=== PATIENT | female | born 1955 | race Caucasian/White ===

== ENCOUNTER 2017-04-08 06:53 | Day surgery (SDC) | payer OTHER ==
[~2017-04-08 06:53] MED LIST: Bupivacaine 0.25%/EPINEPHrine 1:200,000 30 ML SDV ONE; methylPREDNISolone Acetate 80 MG/ML SDV ONE
[2017-04-08] MEDS ORDERED: Lactated Ringers 1,000 ML IV SCH (07:30)
[2017-04-08] MEDS ORDERED: Glycopyrrolate 0.2 MG/ML 5 ML MDV ONE (07:58)
[2017-04-08] MEDS ORDERED: Ondansetron 4 MG/2 ML SDV ONE (07:58)
[2017-04-08] MEDS ORDERED: fentaNYL 250 MCG/5 ML SDV ONE (07:58)
[2017-04-08] MEDS ORDERED: Dexamethasone 4 MG/ML SDV ONE (07:58)
[2017-04-08] MEDS ORDERED: Propofol 200 MG/20 ML SDV ONE (07:58)
[2017-04-08] MEDS ORDERED: Neostigmine Methylsulfate 1 MG/ML 5 ML Syringe ONE (07:58)
[2017-04-08] MEDS ORDERED: Succinylcholine 200 MG/10 ML MDV ONE (07:58)
[2017-04-08] MEDS ORDERED: Rocuronium 50 MG/5 ML Vial ONE (07:58)
[2017-04-08] MEDS ORDERED: ceFAZolin 2 GM in Sodium Chloride 0.9% 50 ML IV ONE (08:15)
[2017-04-08] MEDS ORDERED: Ketorolac 60 MG/2 ML SDV ONE (09:00)
[2017-04-08] MEDS ORDERED: Acetaminophen/HYDROcodone 325-5 MG Tab PO PRN (10:17)
--- NOTE | 2017-04-08 15:11 | OR ---
DATE OF PROCEDURE: 04/08/2017 PREOPERATIVE DIAGNOSIS: 1. Osteoarthritis, grade III, medial compartment. 2. Osteoarthritic changes, grade II to grade III, lateral plateau. 3. 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 POSTOPERATIVE DIAGNOSES: 1. Osteoarthritis, grade III, medial compartment. 2. Osteoarthritic changes, grade II to grade III, lateral plateau. 3. 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 INTERVENTIONS: Left knee shaving to a stable condylar base, internal femoral condyle. ESTIMATED BLOOD LOSS: Minimal. COMPLICATIONS: No complications. INDICATIONS: Radha is a 61-year-old, had been having some left knee pain for the last couple of years. She did well for the last year and a half, did a lot of work this summer building a garage. This got worse. Pain in medial part and slightly front part. No true locking. Quite uncomfortable. She had MRI done of her knee, which showed some edema of medial facet of her patella, moderate degenerative changes patellofemoral joint, mild medial compartment chondromalacia with no degenerative tear of the meniscus, and she failed conservative treatment. We decided to proceed with surgery, which would be a left knee scope. I discussed with patient the possible risks, benefits, alternatives, and complications of surgery. The nature of the surgery was explained, all questions were answered, and informed consent was obtained. PROCEDURE IN DETAIL: The patient was brought to the OR. I did my markings of the left knee. She did receive antibiotics preop. The PRODUCT DIRECTOR proceeded with general anesthesia. The patient was put on her back, and a tourniquet was applied to the left proximal quadriceps. Sterile prep and dressing in the usual manner to the left knee. Time-out was taken to identify the correct surgical site and to make sure all instrumentation was present in the room. The leg was elevated and tourniquet was raised to 250 mmHg. The knee is bent 90 degrees, and an anterior lateral portal incision was done with the scalpel. A blunt probe was entered in the articulation, followed by irrigation and camera. Visualizing the medial and lateral gutters did not show any loose bodies. The patellofemoral joint showed some arthritic changes, grade I and grade II with patella mostly grade II, diffusely grade I at intercondylar notch. The lateral compartment shows chondromalacia, grade II and grade III, lateral plateau only grade I, lateral condyle no meniscal tear laterally. ACL was normal. The medial compartment shows arthritic changes, at least grade III, medial condyle some areas of grade III, maybe slight area of grade IV at the medial plateau at the periphery, but I did not find she had significant meniscal tear at that level. An incision was done at the anteromedial portal. With a probe, I did probe both meniscii and did not show any meniscal tear, but I did shave the interior femoral condyle to a stable condylar base, so most of her problems are because of the osteoarthritis at the medial compartment. The knee was washed with saline and dried and all instrumentation removed. The skin was closed with nylon 3-0 sutures. An injection of 8 mL of Marcaine and 80 mg Depo-Medrol was done. A sterile dressing was applied, and the tourniquet was released. There were no complications. The patient tolerated the operation well and was sent to recovery room in good condition.. Vijay Villegas MD /[id number]
== END 2017-04-08 11:00 | disposition home or self-care (01) ==
LOC: JP.SDS 06:53
PROVIDERS: ATTEND Orthopaedic Surgery
DX: M17.12 Unilateral primary osteoarthritis, left knee (principal); M94.262 Chondromalacia, left knee; K21.9 Gastro-esophageal reflux disease without esophagitis; E78.00 Pure hypercholesterolemia, unspecified; G47.33 Obstructive sleep apnea (adult) (pediatric); E66.9 Obesity, unspecified; Z68.39 Body mass index [BMI] 39.0-39.9, adult; Z79.899 Other long term (current) drug therapy; Z90.49 Acquired absence of other specified parts of digestive tract; Z98.890 Other specified postprocedural states; Z88.8 Allergy status to other drugs, medicaments and biological substances
CPT/HCPCS: 29877; A9270; J0690; J1040; J1100; J1885; J2405; J2704; J2710; J3010; J7050; J7120; J0330